=== PATIENT | female | born 1975 | race Caucasian/White ===

== ENCOUNTER 2016-07-31 17:28 | Emergency (ER) | payer OTHER ==
[2016-07-31 19:26] LABS: BASOPHIL 0.1 % (0-2); EOSINOPHIL 0.9 % (0-5); HCT 41.1 % (37.0-47.0); HGB 13.9 g/dl (12.5-16.0); LYMPHOCYTE 26.5 % (15-48); MCH 29.6 pg (25.0-31.0); MCHC 33.8 g/dL (32.0-36.0); MCV 87.6 fL (78.0-100.0); MONOCYTE 7.4 % (0-12); MPV 10.1 fL (6.0-9.5); NEUTROPHIL 65.1 % (41-80); PLT 236 K/uL (150-400); RBC 4.69 M/uL (4.20-5.40); RDW 12.9 % (11.5-14.0)
== END 2016-07-31 20:04 | disposition home or self-care (01) ==
LOC: FER 17:28
PROVIDERS: Nurse Practitioner Family
DX: J30.2 Other seasonal allergic rhinitis (principal); F17.210 Nicotine dependence, cigarettes, uncomplicated; Z88.1 Allergy status to other antibiotic agents; Z88.2 Allergy status to sulfonamides; Z88.5 Allergy status to narcotic agent
CPT/HCPCS: 36415; 71020; 85025; 99283

== ENCOUNTER 2020-12-15 09:49 | Emergency (ER) | payer OTHER ==
[~2020-12-15 09:49] MED LIST: ATROVENT (00.2 MG/ML INH; IBUPROFEN800 MG PO; PRILOSEC20 MG PO; ROBAXIN750 MG PO; TESSALON PERLE100 MG PO; TUSSIN DM LIQU118 ML PO; VIT D PO; XOPENEX HFA15 GM INH; ZANTAC150 MG PO; ZYRTEC10 M3 PO
[2020-12-15 11:37] LABS: BUN/CREAT RATIO (CALC) 17.6 RATIO; CREATININE 0.68 mg/dL (0.51-0.95); POTASSIUM 4.2 mmol/L (3.5-5.1)
[2020-12-15 11:39] LABS: BASOPHIL 0 % (0-2); EOSINOPHIL 0 % (0-5); HGB 12.5 g/dl (12.5-16.0); LYMPHOCYTE 16.8 % (15-48); MCH 28.2 pg (25.0-31.0); MCHC 32.1 g/dL (32.0-36.0); MCV 87.8 fL (78.0-100.0); MONOCYTE 6.1 % (0-12); MPV 10.5 fL (6.0-9.5); NEUTROPHIL 76.6 % (41-80); NRBC 0; PLT 196 K/uL (150-400); RBC 4.44 M/uL (4.20-5.40); RDW 13.2 % (11.5-14.0); WBC 5.8 K/uL (4.0-10.5)
== END 2020-12-15 13:09 | disposition home or self-care (01) ==
LOC: FER 09:49
PROVIDERS: Emergency Medicine
DX: U07.1 COVID-19 (principal); J44.9 Chronic obstructive pulmonary disease, unspecified; Z88.0 Allergy status to penicillin; Z88.2 Allergy status to sulfonamides; Z88.5 Allergy status to narcotic agent
CPT/HCPCS: 36415; 71045; 80048; 85025; 85379; J7030